=== PATIENT | female | born 1980 | race Caucasian/White ===

== ENCOUNTER 2017-02-14 03:55 | Emergency (ER) | payer OTHER ==
[~2017-02-14] VITALS: Ht 154.9 cm; Wt 56.7 kg
[~2017-02-14 03:55] MED LIST: CEPH500C PO; DULO60CA6 PO; LEVE500T56 PO; PREG200C PO; RISP1TAB3 PO
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
[2017-02-14 05:05] LABS: BASO # 0.1 x10^3/uL (0.0-0.2); BASO % 1 % (0-3); EOS % 1 % (0-3); HEMATOCRIT 46.1 % (36.0-47.0); HEMOGLOBIN 15.7 g/dL (12.0-15.5); LYMPH # 2.5 x10^3/uL (1.0-4.8); LYMPH % 12 % (24-48); MEAN CORPUSCULAR HEMOGLOBIN 32 pg (25-35); MEAN CORPUSCULAR HGB CONC 34 g/dL (31-37); MEAN CORPUSCULAR VOLUME 93 fL (79-100); MONO % 8 % (0-9); NEUT % 79 % (31-73); PLATELET COUNT 309 x10^3/uL (140-400); RED BLOOD COUNT 4.93 x10^6/uL (3.50-5.40); RED CELL DISTRIBUTION WIDTH 14.4 % (11.5-14.5); WHITE BLOOD COUNT 21.3 x10^3/uL (4.0-11.0)
[2017-02-14 05:17] LABS: CALCIUM 10.1 mg/dL (8.5-10.1); CREATININE 0.9 mg/dL (0.6-1.0); GFR 70.5
[2017-02-14 05:18] LABS: MAGNESIUM 1.8 mg/dL (1.8-2.4)
[2017-02-14 05:22] LABS: ETHANOL < 10 mg/dL (0-10)
[2017-02-14 05:57] LABS: BILIRUBIN,URINE SMALL (NEG); GLUCOSE,URINE NEGATIVE (NEG); NITRITE,URINE NEGATIVE (NEG); PH,URINE 5.5; PROTEIN,URINE NEGATIVE (NEG-TRACE)
[2017-02-14 06:04] LABS: BARBITURATES NEG (NEG); BENZODIAZEPINES NEG (NEG); CANNABINOIDS POS (NEG); COCAINE NEG (NEG); METHADONE NEG (NEG); OPIATES NEG (NEG); PHENCYCLIDINE NEG (NEG)
[2017-02-14 06:05] LABS: ETHANOL, URINE NEG (NEG)
[2017-02-14 06:08] LABS: BACTERIA,URINE MANY /HPF (0-FEW); RBC,URINE OCC /HPF (0-2); SQUAMOUS EPITHELIAL CELL,UR MOD /LPF
[2017-02-14] MEDS ORDERED: POTASSIUM CHLORIDE 20 MEQ TABLET.ER. PO ONE (07:00)
[2017-02-14 08:35] VITALS: BP 115/73
== END 2017-02-14 08:45 ==
LOC: ER 03:55
DX: R45.851 Suicidal ideations (principal); R45.850 Homicidal ideations; D72.829 Elevated white blood cell count, unspecified; E86.0 Dehydration; F32.9 Major depressive disorder, single episode, unspecified; R00.0 Tachycardia, unspecified; R56.9 Unspecified convulsions; F25.9 Schizoaffective disorder, unspecified; F15.10 Other stimulant abuse, uncomplicated; Z87.820 Personal history of traumatic brain injury; Z88.8 Allergy status to other drugs, medicaments and biological substances
CPT/HCPCS: 36415; 80048; 80305; 80320; 81001; 81025; 83735; 85027; 87086; 99285; G6038; G0480; G0481; 80196

== ENCOUNTER 2017-03-16 18:31 | Emergency (ER) | payer OTHER ==
[~2017-03-16] VITALS: Ht 152.4 cm; Wt 59.0 kg
[2017-03-16 18:45] VITALS: BP 136/83
[2017-03-16 19:28] LABS: BARBITURATES NEG (NEG); BENZODIAZEPINES NEG (NEG); CANNABINOIDS NEG (NEG); COCAINE NEG (NEG); METHADONE NEG (NEG); OPIATES NEG (NEG); PHENCYCLIDINE NEG (NEG)
[2017-03-16] MEDS ORDERED: IV NORMAL SALINE 1000ML BAG 1,000 ML IV ONE (19:30)
--- NOTE | 2017-03-16 19:41 | PHYS DOC ---
Past Medical History Past Medical History: Schizophrenia, Other Additional Past Medical Histor: TBI, pseudoseizure Past Surgical History: Appendectomy, Hysterectomy Alcohol Use: None Drug Use: None Adult General Chief Complaint Chief Complaint: SEIZURE HPI HPI 36-year-old female presenting to the emergency department saying that she had one seizure approximately 2 hours ago at home. She has a history of seizures and takes medications. She reports taking her medications. She is on Keppra and GABAPENTIN. The seizure was short in duration. 3-5 minutes. No alleviating or exacerbating factors. Onset today. Location brain. Duration intermittent. Review of systems is negative for chest pain shortness of breath nausea vomiting fevers chills. She does report decreased oral intake over the past few days. She is not nauseous. All other review of systems is negative unless otherwise noted in history of present illness. Review of Systems Review of Systems SEE ABOVE. Current Medications Current Medications Current Medications Medications (Trade) Dose Ordered Sig/Kervin Start Time Stop Time Status Last Admin Dose Admin Sodium Chloride 1,000 ml @ 1,000 mls/hr 1X ONCE 03/16/17 19:30 03/16/17 20:29 Allergies Allergies Allergies Coded Allergies Type Severity Reaction Last Updated Verified eszopiclone Allergy Intermediate 02/14/17 Yes zaleplon Allergy Intermediate 02/14/17 Yes zolpidem Allergy Intermediate 02/14/17 Yes Physical Exam Physical Exam Constitutional: Well developed, well nourished, no acute distress, non-toxic appearance. HENT: Normocephalic, atraumatic, bilateral external ears normal, oropharynx moist, no oral exudates, nose normal. [] Eyes: PERRLA, EOMI, conjunctiva normal, no discharge. Neck: Normal range of motion, no tenderness, supple, no stridor. [] Cardiovascular:Heart rate regular rhythm, no murmur [] Lungs & Thorax: Bilateral breath sounds clear to auscultation Abdomen: Bowel sounds normal, soft, no tenderness, no masses, no pulsatile masses. [] Skin: Warm, dry, no erythema, no rash. Back: No tenderness, no CVA tenderness. [] Extremities: No tenderness, no cyanosis, no clubbing, ROM intact, no edema. Neurologic: Mental status: Awake oriented and alert x3 Cranial nerves: Extraocular movements intact, eyebrows dante bilaterally smile symmetric, uvula elevation, shoulder shrug intact, tongue protrusion normal DTRs: 2+ Sensation: equal and normal in all extremities Strength: 5/5 in upper and lower extremities bilaterally Psychologic: Affect normal, judgement normal, mood normal. Current Patient Data Vital Signs Vital Signs Date Time Temp Pulse Resp B/P (MAP) Pulse Ox O2 Delivery O2 Flow Rate FiO2 03/16/17 18:45 98.3 101 16 136/83 (100) 98 Room Air 98.3 Lab Values Laboratory Tests Test 03/16/17 18:15 03/16/17 19:05 POC Urine HCG, Qualitative Hcg negative (Negative) Urine Opiates Screen Neg (NEG) Urine Methadone Screen Neg (NEG) Urine Barbiturates Neg (NEG) Urine Phencyclidine Screen Neg (NEG) Urine Amphetamine/Methamphetamine Pos (NEG) Urine Benzodiazepines Screen Neg (NEG) Urine Cocaine Screen Neg (NEG) Urine Cannabinoids Screen Neg (NEG) Urine Ethyl Alcohol Neg (NEG) EKG EKG [] Radiology/Procedures Radiology/Procedures [] Course & Med Decision Making Course & Med Decision Making Pertinent Labs and Imaging studies reviewed. (See chart for details) [] 36-year-old female who had a seizure today. She has a history of seizures and currently on her meds. Afebrile with normal neurologic exam in the emergency department. Mildly tachycardic likely secondary dehydration. I ordered blood work and saline to be given in the emergency department however the patient refused. She had medical decision making capacity of time. The patient was in discharged to follow home with her primary care physician. The patient was then discharged home in stable condition to follow up with their primary care physician over the next 2-3 days. They were to return if their symptoms worsened or if they were concerned for any reason. [id number] discharge instructions and return precautions were given. Patient's questions were answered to their satisfaction. Patient is comfortable plan. Dragon Disclaimer Dragon Disclaimer This electronic medical record was generated, in whole or in part, using a voice recognition dictation system. Departure Departure Impression: Primary Impression: Seizure Disposition: 01 HOME, SELF-CARE Condition: STABLE Referrals: NO PCP (PCP) ASHLEY MAHER MD Patient Instructions: Alcohol and Drug Addiction, Finding Treatment, Drug Abuse , FAQs, Seizure, Adult Additional Instructions: Thank you for allowing us to participate in your care today. Followup with your primary care physician in 3 days if your symptoms do not improve. If you do not have a primary care provider you can ask for a list of our primary care providers. Return to the emergency department you have any new or concerning findings. This should be evaluated by the primary care physician and any necessary consulting services for continued management within a few days after discharge. Return to emergency room if you have any new or concerning symptoms including but not limited to fever, chills, nausea, vomiting, intractable pain, any new rashes, chest pain, shortness of air, uncontrolled bleeding, difficulty breathing, and/or vision loss. LESLI WATERMAN MD March 16, 2017 19:41
[2017-03-17] MEDS ORDERED: LEVE500T56 PO (03:58)
[2017-03-17] MEDS ORDERED: CEPH-264 PO (03:58)
--- NOTE | 2017-03-17 07:32 | EKG ---
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
== END 2017-03-16 20:05 | disposition home or self-care (01) ==
LOC: ER 19:21
DX: R56.9 Unspecified convulsions (principal); F20.9 Schizophrenia, unspecified; R00.0 Tachycardia, unspecified; Z87.820 Personal history of traumatic brain injury; Z90.710 Acquired absence of both cervix and uterus; Z90.49 Acquired absence of other specified parts of digestive tract; Z79.899 Other long term (current) drug therapy; Z88.8 Allergy status to other drugs, medicaments and biological substances
CPT/HCPCS: 80305; 80320; 81025; 93005; G0481; 99285-25

== ENCOUNTER 2017-03-16 23:07 | Emergency (ER) | payer OTHER ==
[~2017-03-16] VITALS: Ht 152.4 cm; Wt 59.0 kg
--- NOTE | 2017-03-17 01:51 | PHYS DOC ---
Past Medical History Past Medical History: Schizophrenia, Other Additional Past Medical Histor: TBI, pseudoseizure Past Surgical History: Appendectomy, Hysterectomy Alcohol Use: None Drug Use: None Adult General Chief Complaint Chief Complaint: MEDICATION REFILL HPI HPI Patient is a 36 year old female who presents to the emergency department requesting a psychiatric evaluation. The patient states she has history of schizoaffective disorder and has been out of her psychiatric medications for 1 week. Patient denies any suicidal or homicidal ideation. The patient states that she feels "unstable" and is requesting admission to the hospital. Patient has history of substance abuse and has used methamphetamine in the past. The patient states that she has recently used methamphetamine. Patient denies any other somatic symptoms at this time. Review of Systems Review of Systems Constitutional: Denies fever or chills [] Eyes: Denies change in visual acuity, redness, or eye pain [] HENT: Denies nasal congestion or sore throat [] Respiratory: Denies cough or shortness of breath [] Cardiovascular: Denies chest pain or edema [] GI: Denies abdominal pain, nausea, vomiting, bloody stools or diarrhea [] : Denies dysuria or hematuria [] Musculoskeletal: Denies back pain or joint pain [] Integument: Denies rash or skin lesions [] Neurologic: Denies headache, focal weakness or sensory changes [] Current Medications Current Medications Current Medications Medications (Trade) Dose Ordered Sig/Kervin Start Time Stop Time Status Last Admin Dose Admin Cephalexin HCl (Keflex) 500 mg 1X STAT 03/17/17 03:01 03/17/17 03:35 DC 03/17/17 03:19 500 MG Potassium Chloride (Klor-Con) 40 meq 1X ONCE 03/17/17 03:15 03/17/17 03:31 DC 03/17/17 03:19 40 MEQ Allergies Allergies Allergies Coded Allergies Type Severity Reaction Last Updated Verified eszopiclone Allergy Intermediate 02/14/17 Yes zaleplon Allergy Intermediate 02/14/17 Yes zolpidem Allergy Intermediate 02/14/17 Yes Physical Exam Physical Exam Constitutional: Alert, afebrile, no acute distress. [] HENT: Normocephalic, atraumatic, bilateral external ears normal, oropharynx moist, no oral exudates, nose normal. [] Eyes: PERRLA, EOMI, conjunctiva normal, no discharge. [] Neck: Normal range of motion, no tenderness, supple, no stridor. [] Cardiovascular:Heart rate regular rhythm, no murmur [] Lungs & Thorax: Bilateral breath sounds clear to auscultation [] Abdomen: Bowel sounds normal, soft, no tenderness, no masses, no pulsatile masses. [] Skin: Warm, dry, no erythema, no rash. [] Back: No tenderness, no CVA tenderness. [] Extremities: No tenderness, no cyanosis, no clubbing, ROM intact, no edema. [] Neurologic: Alert and oriented X 3, normal motor function, normal sensory function, no focal deficits noted. [] Current Patient Data Vital Signs Vital Signs Date Time Temp Pulse Resp B/P (MAP) Pulse Ox O2 Delivery O2 Flow Rate FiO2 03/17/17 04:32 98 18 114/72 (86) 96 Room Air 03/17/17 00:49 97.6 97.6 Lab Values Laboratory Tests Test 03/17/17 02:04 03/17/17 02:35 White Blood Count 14.9 x10^3/uL (4.0-11.0) H Red Blood Count 4.43 x10^6/uL (3.50-5.40) Hemoglobin 14.0 g/dL (12.0-15.5) Hematocrit 41.4 % (36.0-47.0) Mean Corpuscular Volume 93 fL (79-100) Mean Corpuscular Hemoglobin 32 pg (25-35) Mean Corpuscular Hemoglobin Concent 34 g/dL (31-37) Red Cell Distribution Width 14.2 % (11.5-14.5) Platelet Count 302 x10^3/uL (140-400) Neutrophils (%) (Auto) 62 % (31-73) Lymphocytes (%) (Auto) 30 % (24-48) Monocytes (%) (Auto) 5 % (0-9) Eosinophils (%) (Auto) 2 % (0-3) Basophils (%) (Auto) 1 % (0-3) Neutrophils # (Auto) 9.2 x10^3uL (1.8-7.7) H Lymphocytes # (Auto) 4.5 x10^3/uL (1.0-4.8) Monocytes # (Auto) 0.8 x10^3/uL (0.0-1.1) Eosinophils # (Auto) 0.3 x10^3/uL (0.0-0.7) Basophils # (Auto) 0.1 x10^3/uL (0.0-0.2) Sodium Level 142 mmol/L (136-145) Potassium Level 3.0 mmol/L (3.5-5.1) L Chloride Level 102 mmol/L (98-107) Carbon Dioxide Level 26 mmol/L (21-32) Anion Gap 14 (6-14) Blood Urea Nitrogen 17 mg/dL (7-20) Creatinine 0.7 mg/dL (0.6-1.0) Estimated GFR (Cockcroft-Gault) 94.2 Glucose Level 90 mg/dL (70-99) Calcium Level 9.2 mg/dL (8.5-10.1) Urine Collection Type Unknown Urine Color Nazia Urine Clarity Cloudy Urine pH 6.0 Urine Specific [place] 1.025 Urine Protein Negative mg/dL (NEG-TRACE) Urine Glucose (UA) Negative mg/dL (NEG) Urine Ketones (Stick) 40 mg/dL (NEG) Urine Blood Trace (NEG) Urine Nitrite Positive (NEG) Urine Bilirubin Negative (NEG) Urine Urobilinogen Dipstick 1.0 mg/dL (0.2 mg/dL) Urine Leukocyte Esterase Small (NEG) Urine RBC Occ /HPF (0-2) Urine WBC 1-4 /HPF (0-4) Urine Squamous Epithelial Cells Mod /LPF Urine Bacteria Many /HPF (0-FEW) Urine Mucus Marked /LPF Urine Opiates Screen Neg (NEG) Urine Methadone Screen Neg (NEG) Urine Barbiturates Neg (NEG) Urine Phencyclidine Screen Neg (NEG) Urine Amphetamine/Methamphetamine Pos (NEG) Urine Benzodiazepines Screen Neg (NEG) Urine Cocaine Screen Neg (NEG) Urine Cannabinoids Screen Neg (NEG) Urine Ethyl Alcohol Neg (NEG) Laboratory Tests 03/17/17 02:04 Laboratory Tests 03/17/17 02:04 EKG EKG Not performed [] Radiology/Procedures Radiology/Procedures Not performed [] Course & Med Decision Making Course & Med Decision Making Pertinent Labs and Imaging studies reviewed. (See chart for details) The patient was medically screened in the emergency department and found to have low potassium levels any urinary tract infection. Patient was given oral potassium for replacement and was started on Keflex for treatment of urinary tract infection. Patient was medically cleared for psychiatric assessment team screening. Patient was evaluated by [facility] team. After screening, the patient was selected for transfer to [facility] for stabilization. Patient was discharged with prescriptions for Keflex and Keppra. Patient transferred by ambulance to [facility]. Dragon Disclaimer Morenoon Disclaimer This electronic medical record was generated, in whole or in part, using a voice recognition dictation system. Departure Departure Impression: Primary Impression: Schizoaffective disorder Additional Impressions: Urinary tract infection Seizure disorder Disposition: 65 XFER TO PSYCH HOSP/UNIT Condition: STABLE Referrals: NO PCP (PCP) Patient Instructions: Schizoaffective Disorder, Urinary Tract Infection Additional Instructions: You will be transferred to [facility] psychiatric unit upon discharge from the emergency department. You were found to have evidence of urinary tract infection and will be treated with cephalexin for 7 day course. While at [facility] they will evaluate you and help restart your your psychiatric medications. Return to the emergency department for any worsening symptoms. Scripts Cephalexin (KEFLEX) 500 Mg Capsule 1 CAP PO BID, #14 CAP Prov: FLORI STEWART MD 03/17/17 Levetiracetam (KEPPRA) 500 Mg Tablet 2 TAB PO BID, #120 TAB 0 Refills Prov: FLORI STEWART MD 03/17/17 Problem Qualifiers Primary Impression: Schizoaffective disorder Schizoaffective disorder type: unspecified Qualified Codes: F25.9 - Schizoaffective disorder, unspecified Additional Impressions: Urinary tract infection Urinary tract infection type: site unspecified Hematuria presence: without hematuria Qualified Codes: N39.0 - Urinary tract infection, site not specified FLORI STEWART MD March 17, 2017 01:51
[2017-03-17 02:20] LABS: BASO # 0.1 x10^3/uL (0.0-0.2); BASO % 1 % (0-3); EOS % 2 % (0-3); HEMATOCRIT 41.4 % (36.0-47.0); LYMPH # 4.5 x10^3/uL (1.0-4.8); LYMPH % 30 % (24-48); MEAN CORPUSCULAR HEMOGLOBIN 32 pg (25-35); MEAN CORPUSCULAR HGB CONC 34 g/dL (31-37); MEAN CORPUSCULAR VOLUME 93 fL (79-100); MONO % 5 % (0-9); NEUT % 62 % (31-73); PLATELET COUNT 302 x10^3/uL (140-400); RED BLOOD COUNT 4.43 x10^6/uL (3.50-5.40); RED CELL DISTRIBUTION WIDTH 14.2 % (11.5-14.5); WHITE BLOOD COUNT 14.9 x10^3/uL (4.0-11.0)
[2017-03-17 02:31] LABS: CALCIUM 9.2 mg/dL (8.5-10.1); CREATININE 0.7 mg/dL (0.6-1.0); GFR 94.2
[2017-03-17 02:41] LABS: BILIRUBIN,URINE NEGATIVE (NEG); GLUCOSE,URINE NEGATIVE (NEG); NITRITE,URINE POSITIVE (NEG); PROTEIN,URINE NEGATIVE (NEG-TRACE)
[2017-03-17 02:45] LABS: BACTERIA,URINE MANY /HPF (0-FEW); BARBITURATES NEG (NEG); BENZODIAZEPINES NEG (NEG); CANNABINOIDS NEG (NEG); COCAINE NEG (NEG); METHADONE NEG (NEG); OPIATES NEG (NEG); PHENCYCLIDINE NEG (NEG); RBC,URINE OCC /HPF (0-2); SQUAMOUS EPITHELIAL CELL,UR MOD /LPF
[2017-03-17] MEDS ORDERED: CEPHALEXIN 250 MG CAPSULE. PO STA (03:01)
[2017-03-17] MEDS ORDERED: POTASSIUM CHLORIDE 20 MEQ TABLET.ER. PO ONE (03:15)
[2017-03-17] MEDS ORDERED: CEPH-264 PO (03:58)
[2017-03-17] MEDS ORDERED: LEVE500T56 PO (03:58)
[2017-03-17 04:32] VITALS: BP 114/72
== END 2017-03-17 04:49 ==
LOC: ER 23:07
DX: F25.9 Schizoaffective disorder, unspecified (principal); G40.909 Epilepsy, unspecified, not intractable, without status epilepticus; N39.0 Urinary tract infection, site not specified; Z76.0 Encounter for issue of repeat prescription; F15.10 Other stimulant abuse, uncomplicated; Z87.820 Personal history of traumatic brain injury; Z90.710 Acquired absence of both cervix and uterus; Z90.49 Acquired absence of other specified parts of digestive tract; Z88.8 Allergy status to other drugs, medicaments and biological substances
CPT/HCPCS: 36415; 80048; 81001; 85027; 87086; 99285; G0481

== ENCOUNTER 2017-07-27 01:41 | Emergency (ER) | payer OTHER ==
[~2017-07-27] VITALS: Ht 154.9 cm; Wt 59.0 kg
[~2017-07-27 01:41] MED LIST changes: +CEPH-264 PO
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
[2017-07-27 03:30] VITALS: BP 131/79
[2017-07-27] MEDS ORDERED: IBUP-1007 PO (03:53)
[2017-07-27] MEDS ORDERED: ACETAMINOPHEN 325 MG TABLET. PO ONE (04:00)
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
== END 2017-07-27 04:11 | disposition home or self-care (01) ==
LOC: EEVIPCON 01:41 → ER 01:41
DX: R68.84 Jaw pain (principal); M54.2 Cervicalgia; M25.511 Pain in right shoulder; Z88.8 Allergy status to other drugs, medicaments and biological substances; Y08.89XA Assault by other specified means, initial encounter; Y93.89 Activity, other specified; Y92.89 Other specified places as the place of occurrence of the external cause; Y99.8 Other external cause status
CPT/HCPCS: 70450; 70486; 72125; 73030; 99284-25